=== PATIENT | male | born 1975 | race Hispanic/Latino ===

== ENCOUNTER 2017-11-14 23:47 | Emergency (ER) | payer OTHER ==
[2017-11-14 23:54] VITALS: BP 132/81; RESP 18; O2SAT 100
--- NOTE | 2017-11-15 00:23 | ED PDOC ---
HPI: CCC, URI, Sore Throat Time Seen by Provider: 11/14/17 23:59 Chief Complaint (Nursing): Headache Chief Complaint (Provider): Right ear pain, headache History Per: Patient History/Exam Limitations: no limitations Onset/Duration Of Symptoms: Days Current Symptoms Are (Timing): Still Present Location Of Pain: Ear(s) (Right ) Associated Symptoms: denies: Sore Throat, Cough, Sputum, Myalgias Ear Symptoms: Right: Ear Pain Additional Complaint(s): 42 yo with history of mastoditis presents with one day of right ear pain. Pt reports having congestion the last few days and has been taking Benadryl. Pt reports right ear pain today. Pt states this is how it began when he had mastoditis in the past. No pain behind the right ear. Past Medical History Reviewed: Historical Data, Nursing Documentation, Vital Signs Vital Signs: Last Vital Signs Temp 98.4 F 11/14/17 23:51 Pulse 79 11/14/17 23:51 Resp 18 11/14/17 23:51 BP 132/81 11/14/17 23:51 Pulse Ox 100 11/14/17 23:51 - Medical History PMH: No Chronic Diseases - Surgical History Surgical History: No Surg Hx - Family History Family History: States: No Known Family Hx - Living Arrangements Living Arrangements: With Family - Social History Current smoker - smoking cessation education provided: No - Home Medications Home Medications: Ambulatory Orders Medication Instructions Recorded Amoxicillin/Clavulanate [Augmentin 1 tab PO BID #20 tab 11/15/17 875 MG-125 MG] - Allergies Allergies/Adverse Reactions: Allergies Allergy/AdvReac Type Severity Reaction Status Date / Time No Known Allergies Allergy Verified 11/14/17 23:51 Review of Systems ROS Statement: Except As Marked, All Systems Reviewed And Found Negative ENT: Positive for: Ear Pain Skin: Negative for: Rash Physical Exam - Reviewed Nursing Documentation Reviewed: Yes Vital Signs Reviewed: Yes - Physical Exam Appears: Positive for: Well, Non-toxic, No Acute Distress Head Exam: Positive for: ATRAUMATIC, NORMAL INSPECTION, NORMOCEPHALIC Skin: Positive for: Normal Color, Warm, DRY Eye Exam: Positive for: Normal appearance ENT: Negative for: Normal ENT Inspection ((+) erythema of the right TM without perforation; (-) mastoid tenderness ) Neck: Positive for: Normal, Painless ROM Cardiovascular/Chest: Positive for: Regular Rate, Rhythm Respiratory: Positive for: Normal Breath Sounds. Negative for: Accessory Muscle Use, Respiratory Distress Back: Positive for: Normal Inspection Extremity: Positive for: Normal ROM Neurologic/Psych: Positive for: Alert, Oriented - ECG O2 Sat by Pulse Oximetry: 100 Pulse Ox Interpretation: Normal Disposition - Clinical Impression Clinical Impression: Otitis media - Patient ED Disposition Is Patient to be Admitted: No Counseled Patient/Family Regarding: Diagnosis, Need For Followup, Rx Given - Disposition Disposition: Routine/Home Disposition Time: 00:21 Condition: STABLE Prescriptions: Amoxicillin/Clavulanate [Augmentin 875 MG-125 MG] 1 tab PO BID #20 tab Instructions: Ear Infections (Otitis Media)
[2017-11-15 01:49] VITALS: PULSE 84; TEMP 98.6
== END 2017-11-15 01:15 | disposition home or self-care (01) ==
LOC: H.ER 23:47
DX: H66.91 Otitis media, unspecified, right ear (principal)

== ENCOUNTER 2018-07-12 17:05 | Emergency (ER) | payer OTHER ==
[2018-07-12 17:15] VITALS: BP 123/67; RESP 18
--- NOTE | 2018-07-12 17:45 | ED PDOC ---
HPI: Male Pain Time Seen by Provider: 07/12/18 17:19 Chief Complaint (Nursing): Male Genitourinary Additional History Per: Patient Additional Complaint(s): This is 43 y/o male with PMH of left inguinal hernia repair comes to the ER c/o 1 day hx of dysuria. Patient had 100.8 F this morning, last motrin 600mg at 3pm. Patient reports headache, muscle aches and fatigue with dysuria. Patient denies any blurred vision, palpitations, chest pain, SOB, abdominal pain or n/v/d/c. PMH: As HPI PSH: As HPI Allg: NKDA SH: Social alcohol use, denies amoking or drug use FH: Denies significant FH ROS: As per HPI Past Medical History Vital Signs: Last Vital Signs Temp 100.7 F H 07/12/18 17:12 Pulse 114 H 07/12/18 17:12 Resp 18 07/12/18 17:12 BP 123/67 07/12/18 17:12 Pulse Ox 99 07/12/18 17:12 - Family History Family History: States: No Known Family Hx - Home Medications Home Medications: Ambulatory Orders Medication Instructions Recorded Amoxicillin/Clavulanate [Augmentin 1 tab PO BID #20 tab 11/15/17 875 MG-125 MG] Cephalexin [Keflex] 500 mg PO Q12 10 Days #20 capsule 07/12/18 - Allergies Allergies/Adverse Reactions: Allergies Allergy/AdvReac Type Severity Reaction Status Date / Time No Known Allergies Allergy Verified 11/14/17 23:51 Review of Systems Constitutional: Positive for: Fever. Negative for: Sweats Eyes: Negative for: Pain ENT: Negative for: Ear Pain Cardiovascular: Negative for: Chest Pain, Palpitations Respiratory: Negative for: Cough, Shortness of Breath Gastrointestinal: Negative for: Nausea, Vomiting, Abdominal Pain Genitourinary Male: Positive for: Dysuria, Frequency Musculoskeletal: Negative for: Neck Pain Skin: Negative for: Rash Neurological: Negative for: Weakness Psych: Negative for: Anxiety Physical Exam - Physical Exam Appears: Positive for: No Acute Distress Head Exam: Positive for: NORMAL INSPECTION Skin: Positive for: Normal Color Eye Exam: Positive for: Normal appearance ENT: Positive for: Normal ENT Inspection Neck: Positive for: Normal Cardiovascular/Chest: Positive for: Regular Rate, Rhythm. Negative for: Edema, JVD Respiratory: Positive for: Normal Breath Sounds. Negative for: Decreased Breath Sounds, Accessory Muscle Use, Crackles Gastrointestinal/Abdominal: Positive for: Normal Exam, Bowel Sounds (+), Soft. Negative for: Tenderness Back: Positive for: Normal Inspection. Negative for: L CVA Tenderness, R CVA Tenderness, Vertebral Tenderness, Decreased ROM, Muscle Spasm Extremity: Positive for: Normal ROM. Negative for: Tenderness, Pedal Edema, Calf Tenderness Neurologic/Psych: Positive for: Alert, high school math tutor II-XII, Oriented - Laboratory Results Result Diagrams: 07/12/18 17:43 07/12/18 17:43 Urine dip results: Positive for: Leukocyte Esterase, Nitrate - ECG O2 Sat by Pulse Oximetry: 99 - Progress ED Course And Treament: A/P: 43 y/o male with dysuria. - UA, Ucx - CBC, CMP, Lipase - Tylenol and toradol - Reevaluation Case discussed with Dr. Obrien CBC, CMP and lipase negative UA: Postive: Nitrate Patient agrees with discharge plan home Abx Close f/u with PMD and Urology referral Re-evaluation Time: 18:50 Condition: Improved Medical Decision Making Medical Decision Making: UTI Disposition - Clinical Impression Clinical Impression: Urinary tract infection - Patient ED Disposition Is Patient to be Admitted: No - Disposition Referrals: FAMILY PROVIDER,NO [Family Provider] - João Vargas Jr., MD [Staff Provider] - Disposition: Routine/Home Disposition Time: 18:51 Condition: STABLE Additional Instructions: Educated on UTI Follow up with OMD in 2-3 days Referral to Urology ED precautions discussed Prescriptions: Cephalexin [Keflex] 500 mg PO Q12 10 Days #20 capsule Instructions: Urinary Tract Infections in Adults Forms: [facility] (Slovenian) Print Language: GABONESE
[2018-07-12 18:13] LABS: URINE AMORPHOUS SEDIMENT RARE /ul (<OCC); URINE BACTERIA RARE (<OCC); URINE BILIRUBIN NEGATIVE (NEGATIVE); URINE BLOOD NEGATIVE (NEGATIVE); URINE CLARITY SLIGHTY-CLOUDY (Clear); URINE COLOR YELLOW (YELLOW); URINE GLUCOSE (UA) NEG (NEGATIVE); URINE LEUKOCYTE ESTERASE LARGE Leu/uL (Negative); URINE PROTEIN NEGATIVE (NEGATIVE); URINE UROBILINOGEN 0.2-1.0 mg/dL (0.2-1.0)
[2018-07-12 18:21] LABS: BASO % 0.2 % (0.0-2.0); EOS % 0.3 % (0.0-4.0); HEMOGLOBIN 15.4 g/dL (12.0-18.0); LYMPH # 0.8 K/uL (1.0-4.3); LYMPH % 8.7 % (20.0-40.0); MEAN CELL VOLUME 89.7 fl (80.0-94.0); MEAN CORPUSCULAR HEMOGLOBIN 29.8 pg (27.0-31.0); MEAN CORPUSCULAR HGB CONC 33.2 g/dL (33.0-37.0); MEAN PLATELET VOLUME 9.7 fl (7.2-11.7); MONO # 0.7 K/uL (0.0-0.8); MONO % 7.9 % (0.0-10.0); NEUT # 7.7 K/uL (1.8-7.0); NEUT % 82.9 % (50.0-75.0); NRBC % 0.1 % (0.0-0.0); PLATELET COUNT 124 K/uL (130-400); RBC 5.17 Mil/uL (4.40-5.90); RED CELL DISTRIBUTION WIDTH 13.6 % (11.5-14.5); WHITE BLOOD COUNT 9.3 K/uL (4.8-10.8)
[2018-07-12 18:25] LABS: ALB/GLOB RATIO 1.3 (1.0-2.1); ALBUMIN 4.2 g/dL (3.5-5.0); ALT/SGPT 22 U/L (21-72); AST/SGOT 24 U/L (17-59); BLOOD UREA NITROGEN 17 mg/dl (9-20); CALCIUM 9.4 mg/dL (8.4-10.2); GFR NON-AFRICAN AMERICAN > 60; LIPASE 128 U/L (23-300)
[2018-07-12 19:10] VITALS: PULSE 73; TEMP 99.1; O2SAT 100
[2018-07-12 19:55] LABS: BANDS 2 % (0-2); LYMPHOCYTE 9 % (20-50); MONOCYTE 5 % (0-10); NEUTROPHIL 84 % (42-75); PLATELET ESTIMATE NORMAL (NORMAL); TOTAL CELLS COUNTED 100
[2018-07-12 19:56] LABS: TOXIC GRANULATION PRESENT
== END 2018-07-12 19:10 | disposition home or self-care (01) ==
LOC: H.ER 17:05
DX: N39.0 Urinary tract infection, site not specified (principal); K40.90 Unilateral inguinal hernia, without obstruction or gangrene, not specified as recurrent
CPT/HCPCS: 80053; 81003; 83690; 85025; 87086; 96372; 99283; J1885